=== PATIENT | female | born 1965 | race Caucasian/White ===

== ENCOUNTER 2017-06-07 06:32 | Observation (INO) ==
[2017-06-07 07:07] LABS: Basophils # 0.1 K/mcL (0.0-0.2); Basophils % 0.6 %; Eosinophils # 0.2 K/mcL (0.0-0.6); Hematocrit 51.4 % (35.3-44.9); Hemoglobin 16.6 g/dL (11.5-15.4); Immature Granulocytes % 0.6 % (0-4); Immature Platelets 3.4 % (1.1-6.1); Lymphocytes # 2.6 K/mcL (0.6-4.6); Lymphocytes % 26.2 %; Mean Corpuscular HGB Conc 32.3 g/dL (31.6-35.5); Mean Corpuscular Hemoglobin 28.5 pg (28.0-33.3); Mean Corpuscular Volume 88.2 fL (83.0-100.0); Mean Platelet Volume 9.7 fL (9.4-12.4); Monocytes # 0.5 K/mcL (0.0-1.3); Monocytes % 5.2 %; Neutrophils # 6.4 K/mcL (1.6-8.9); Platelet Count 284 K/mcL (140-400); Red Blood Count 5.83 M/mcL (3.82-4.97); Red Cell Distribution Width 13.7 % (11.5-14.5); Segmented Neutrophils % 65.4 %
[2017-06-07 07:12] LABS: INR 0.9; Prothrombin Time 9.5 Seconds (9.4-12.1)
[2017-06-07 07:14] LABS: Activated Partial Thrombo Time 30.9 Seconds (26.0-36.0)
[2017-06-07 07:20] LABS: BUN/Creatinine Ratio 16 (6-26); Blood Urea Nitrogen 15 mg/dL (7-20); Carbon Dioxide 24 mEq/L (19-29); Chloride 103 mEq/L (98-109); Potassium 3.5 mEq/L (3.5-4.5); Sodium 140 mEq/L (136-145)
[2017-06-07 07:21] LABS: Calcium 10.3 mg/dL (8.6-10.8); Glucose 130 mg/dL (70-99); Osmolality,Calculated 293 (280-300); eGFR For African Americans > 60 (> 60); eGFR For Non-African Americans > 60 (> 60)
--- NOTE | 2017-06-07 07:47 | Emergency Department Note ---
Disposition Clinical Impression: Chest pain Qualifiers: Chest pain type: unspecified Qualified Code(s): R07.9 - Chest pain, unspecified Disposition: Admitted As Inpatient Condition: Fair Chest Pain HPI - General Chief Complaint: ED Chest Pain Stated Complaint: dizziness, chest pressure Time Seen by Provider: 06/07/17 07:13 Source: patient Limitations: no limitations Vital Signs Reviewed: Yes Nursing Notes Reviewed: Yes - History of Present Illness HPI Narrative: She presents with chest tightness which began about 6:00 this morning will she was getting ready for work and it is constant and does radiate to the jaw. She does not have overt diaphoresis but felt like she was going to have sweating. The discomfort does not radiate through to the back. She denies any dyspnea. No pain or swelling of the lower extremities. She has never had this discomfort in the past. The chest discomfort is exertional. She presents via private car. She is here with her . No pain or swelling of the lower extremities, casts or splints of the lower extremities, prolonged immobilization or lower extremity injury. No history of cancer, hemoptysis, hormone therapy, blood clotting problems or recent surgery. Social history: No smoking, alcohol, drugs. Family history: Positive for father with heart disease and coronary artery bypass grafting Severity scale (1-10): 5 - Related Data Home Medications Medication Instructions Recorded Confirmed Triamterene/HCTZ 37.5/25mg 1 tab PO DAILY PRN 06/07/17 06/07/17 [Dyazide] Allergies Allergy/AdvReac Type Severity Reaction Status Date / Time No Known Allergies Allergy Verified 06/07/17 06:36 Review of Systems: Constitutional: No fever Vision: No blurred vision ENT: No rhinorrhea Respiratory: No cough Allergic: No allergies : No blood in urine GI: No blood in stool Hematologic: No bruising Dermatologic: No skin rash Musculoskeletal: No pain in the extremities Neuro: No numbness of the extremities Chest Pain PMH - Past Medical History Medical history: Reports: no medical history, non-contributory Psychiatric history: Reports: no psych history - Social History Smoking Status: Never smoker Alcohol use: Reports: none Drug use: Reports: none Physical Exam CONSTITUTIONAL: Well-appearing; well-nourished; A&O X 3, in no apparent distress HEAD: Normocephalic; atraumatic EYES: PERRL, no scleral icterus NOSE: The nose is normal in appearance without rhinorrhea NECK: No JVD or distended neck veins RESP: Normal chest excursion with respiration; breath sounds clear and equal bilaterally; no wheezes, rhonchi, or rales CARD: Regular rhythm, without murmurs, rub or gallop ABD: Non-distended; non-tender, soft, without rigidity, rebound or guarding,no pulsatile mass CHEST: No pain with palpation SKIN: Normal for age and race; warm and dry without diaphoresis ; no apparent lesions EXTREMITIES: Pulses are 2 plus and equal times 4 extremities, no peripheral edema or calf muscle pain - General Limitations: no limitations General appearance: alert, in no apparent distress Course Vital Signs Temperature 97.9 F 06/07/17 06:34 Pulse Rate 85 06/07/17 06:34 Respiratory Rate 18 06/07/17 06:34 Blood Pressure 167/114 06/07/17 06:34 O2 Sat by Pulse Oximetry 98 06/07/17 06:34 Temperature 98.1 F 06/07/17 15:50 Pulse Rate 96 06/07/17 15:50 Respiratory Rate 16 06/07/17 15:50 Blood Pressure 132/89 06/07/17 15:50 O2 Sat by Pulse Oximetry 93 06/07/17 15:50 Oxygen Delivery Oxygen Delivery Room Air Chest Pain - MDM Narrative Medical decision making narrative: This patient's chest discomfort is very concerning considering that it is exertional and radiates to the jaw and she does have a family history and because it is recent onset the labs are unable to completely exclude coronary disease as a possibility so the patient will be admitted. I did review her EKG showing normal sinus rhythm with rate of 99 without acute ischemic change. Patient does have some low voltage in the precordial leads but not in the limb leads. FL interval 143 and QRS duration is 97. I did see the patient on 2 occasions and also discussed the plan and she is comfortable with the approach. Chest x-ray negative per radiology interpretation. [id number] I did speak with the hospitalist who accepts the patient for admission. Second EKG is pending. [id number] Second EKG is done at 8:11 AM does show normal sinus rhythm with rate of 86 without acute ischemic change. The FL interval and QRS duration are both normal. 4794 - Medical Records Medical records reviewed: Yes I reviewed the patient's medical records. - Lab Data Lab results reviewed: Yes I reviewed the patient's lab results. Result diagrams: 06/07/17 06:58 06/07/17 06:58 Lab Results 06/07/17 06/07/17 06/07/17 Range/Units 06:58 06:58 06:58 WBC 9.8 (4.3-11.1) K/mcL RBC 5.83 H (3.82-4.97) M/mcL Hgb 16.6 H (11.5-15.4) g/dL Hct 51.4 H (35.3-44.9) % MCV 88.2 (83.0-100.0) fL MCH 28.5 (28.0-33.3) pg MCHC 32.3 (31.6-35.5) g/dL RDW 13.7 (11.5-14.5) % Plt Count 284 (140-400) K/mcL MPV 9.7 (9.4-12.4) fL Immature Gran % 0.6 (0-4) % Seg Neutrophils % 65.4 % Lymphocytes % 26.2 % Monocytes % 5.2 % Eosinophils % 2.0 % Basophils % 0.6 % Neutrophils # 6.4 (1.6-8.9) K/mcL Lymphocytes # 2.6 (0.6-4.6) K/mcL Monocytes # 0.5 (0.0-1.3) K/mcL Eosinophils # 0.2 (0.0-0.6) K/mcL Basophils # 0.1 (0.0-0.2) K/mcL Immature Plt Fraction 3.4 (1.1-6.1) % PT 9.5 (9.4-12.1) Seconds INR 0.9 APTT 30.9 (26.0-36.0) Seconds Sodium 140 (136-145) mEq/L Potassium 3.5 (3.5-4.5) mEq/L Chloride 103 (98-109) mEq/L Carbon Dioxide 24 (19-29) mEq/L BUN 15 (7-20) mg/dL Creatinine 0.94 (0.57-1.11) mg/dL Est GFR ( Amer) > 60 (> 60) Est GFR (Non-Af Amer) > 60 (> 60) BUN/Creatinine Ratio 16 (6-26) Glucose 130 H (70-99) mg/dL Est Mean Plasma Glucose mg/dl Hemoglobin A1c ( - 5.6) % Calculated Osmolality 293 (280-300) Calcium 10.3 (8.6-10.8) mg/dL Troponin I (0-0.03) ng/mL 06/07/17 06/07/17 Range/Units 06:58 06:58 WBC (4.3-11.1) K/mcL RBC (3.82-4.97) M/mcL Hgb (11.5-15.4) g/dL Hct (35.3-44.9) % MCV (83.0-100.0) fL MCH (28.0-33.3) pg MCHC (31.6-35.5) g/dL RDW (11.5-14.5) % Plt Count (140-400) K/mcL MPV (9.4-12.4) fL Immature Gran % (0-4) % Seg Neutrophils % % Lymphocytes % % Monocytes % % Eosinophils % % Basophils % % Neutrophils # (1.6-8.9) K/mcL Lymphocytes # (0.6-4.6) K/mcL Monocytes # (0.0-1.3) K/mcL Eosinophils # (0.0-0.6) K/mcL Basophils # (0.0-0.2) K/mcL Immature Plt Fraction (1.1-6.1) % PT (9.4-12.1) Seconds INR APTT (26.0-36.0) Seconds Sodium (136-145) mEq/L Potassium (3.5-4.5) mEq/L Chloride (98-109) mEq/L Carbon Dioxide (19-29) mEq/L BUN (7-20) mg/dL Creatinine (0.57-1.11) mg/dL Est GFR ( Amer) (> 60) Est GFR (Non-Af Amer) (> 60) BUN/Creatinine Ratio (6-26) Glucose (70-99) mg/dL Est Mean Plasma Glucose 128 mg/dl Hemoglobin A1c 6.1 H ( - 5.6) % Calculated Osmolality (280-300) Calcium (8.6-10.8) mg/dL Troponin I 0.00 (0-0.03) ng/mL - Radiology Data Radiology results reviewed: Yes I reviewed the patient's radiology results.
[2017-06-07] MEDS ORDERED: Aspirin 81 MG TAB.CHEW PO ONE (08:21)
[2017-06-07] MEDS ORDERED: Aspirin 81 MG TAB.CHEW ONE (08:26)
--- NOTE | 2017-06-07 09:24 | Internal Med History&Physical ---
<Uday Lopez - Last Filed: 06/07/17 10:36> Date of Encounter: 06/07/17 Time of Encounter: 08:30 Assessment and Plan (1) Chest pain Current visit: Yes Status: Acute 51-year-old female presented with chest pressure mainly localized over the left chest, radiating to the left arm and left jaw. Unsure of exacerbating factors as this presented at rest and relieving factors were not tried. Patient is not on aspirin and does not take nature glycerin. Chest pain appears to be atypical versus noncardiac in nature. - ROWDY score: 1 (CAD risk factors include hypertension, family history CAD, hypercholesterolemia, hypertriglyceridemia) - EKG reviewed demonstrates normal sinus rhythm with appropriate rate and axis. No previous EKG to compare. - Troponin 1 was 0.00 Based on the patient's history, physical exam and findings her chest pain appears to be atypical versus noncardiac and low suspicion for ACS. ACS cannot be ruled out at this time and will continue further cardiac workup. Other concerning risk factors including morbid obesity, elevated hemoglobin at 16.6 and hematocrit at 51 concerning for undiagnosed sleep apnea. Plan: - Troponin 3 every 6 hours - EKG every morning - Cardiac monitoring continuous - Aspirin 81 mg daily, atorvastatin, morphine, oxygen and metoprolol 25 mg by mouth daily - Treadmill stress test - ADA diet Qualifiers: Chest pain type: unspecified Qualified Code(s): R07.9 - Chest pain, unspecified (2) Hypertriglyceridemia Current visit: Yes Status: Acute Patient has a history of hypertriglyceridemia. - Recommend lifestyle modifications, improve diet and weight loss including daily exercise. - Follow up with primary care provider. (3) Hypercholesteremia Current visit: Yes Status: Acute Previous laboratory results demonstrate elevated cholesterol levels. This is concerning as the patient has a hemoglobin A1c of 5.8, morbidly obese, low exercise activity, hypertriglyceridemia, presenting with chest pressure. Her elevated cholesterol levels increase her risk for CAD. ASCVD risk score: 4.8% Current 10 year risk, 50% life time ASCVD risk. Plan: - Diet modifications, recommend increased exercise and weight control - Patient may benefit from initiation of statin. (4) Hypertension Current visit: Yes Status: Acute Patient presented with elevated blood pressures in the systolic 167 over diastolic 114, currently maintaining systolic blood pressure of 142 - Home medication includes: Triamterene-HCTZ Plan: - Monitor BP during inpatient stay and adjust as necessary. Qualifiers: Qualified Code(s): I10 - Essential (primary) hypertension (5) DVT prophylaxis Current visit: Yes Status: Acute Lovenox 40 daily every morning Internal Medicine - H&P: HPI Chief complaint: chest pain Admitted From: Emergency Dept Plans for Post Hospital Care: Home History of present illness: Ms. Silver is a 51 year old female presents to the emergency department this morning after she developed chest pain. Ms. Silver states that she was driving to work this morning and while at rest driving her car she developed chest pain starting on the right radiating to the left chest and then radiating to her left upper extremity and left jaw. She she describes the pain as a pressure chest squeezing and then localized to her left chest and continues to radiate into her left upper extremity and left jaw. 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 She denies ever having pain like this before she denies any pain radiating to her back. Currently she rates the chest pressure at a 4 out of 10. She continues to have some pain radiating into her left jaw and left upper extremity. She did not take any medications including aspirin, beta blockers, statins or nitroglycerin. She does not take any home medications other than a antihypertensive medication, which she says is a water pill. She was at rest when the discomfort started and is unsure if it is exacerbated with activity. She has not had any aspirin or nitroglycerin at the time of this encounter but says that the pain is improved. She denies any recent physical activity, strenuous activity, change in her diet or new medications. She denies any blurry vision, headaches, near syncope or syncopal episodes, palpitations, shortness of breath, pain with deep inspiration or exhalation, acid reflux or bad taste in her mouth, abdominal pains, nausea vomiting diarrhea constipation, burning with urination, swelling in her arms or legs, weakness in any of her extremities. She denies any other significant medical history. Past Med Surg Social Fam HX - Past Medical History Medical history: no medical history, non-contributory Psychiatric history: no psych history - Past Surgical History Surgical History: hysterectomy - Social History Smoking Status: Never smoker Smokeless Tobacco Status: No Alcohol use: none Drug use: none - Family History Father Hx Family Cardiac Disorders: Yes (Bypass, CAD, hypertension) Mother Living Status: Cause of : 67 Hx Family Cardiac Disorders: Yes (HTN) Hx Family Cancer: Yes (Breast CA) Hx Family GI Disorders: Yes Internal Medicine - H&P: Meds Triamterene/HCTZ 37.5/25mg [Dyazide] 1 tab PO DAILY PRN 06/07/17 [History] 3 Allergy/AdvReac Type Severity Reaction Status Date / Time No Known Allergies Allergy Verified 06/07/17 06:36 All Systems PM: A 10-system review of systems was performed and is negative for pertinent findings except as documented above in the HPI. - Constitutional Constitutional: no chills, no fever(s), no night sweats - EENT Eyes: no change in vision, no discharge, no pain, no photophobia Ears: no ear discharge, no ear pain, no tinnitus Nose, mouth and throat: no dysphagia, no nasal discharge, no neck pain, no sore throat - Cardiovascular Cardiovascular ROS IM: chest pain, no diaphoresis, no dyspnea, no dyspnea on exertion, no edema, no lightheadedness, no palpitations, no syncope - Respiratory Respiratory: no cough, no dyspnea, no wheezing, no excessive phlegm production - Gastrointestinal Gastrointestinal: no abdominal pain, no change in bowel habits, no change in stool character, no constipation, no diarrhea, no hematemesis, no hematochezia, no melena, no nausea, no vomiting - Genitourinary Genitourinary: no change in urinary stream, no dysuria, no flank pain, no hematuria - Musculoskeletal Musculoskeletal ROS IM: tingling, no numbness - Integumentary Integumentary IM: no rash, no unusual bruising - Neurological Neurological ROS: no confusion, no convulsions, no focal weakness, no numbness, no tingling, no tremor(s) - Hematologic/Lymphatic Hematologic/Lymphatic: no easy bruising - Constitutional Vitals: Temp Pulse Resp BP Pulse Ox 98.1 F 88 16 144/94 96 06/07/17 08:45 06/07/17 08:45 06/07/17 08:45 06/07/17 08:45 06/07/17 08:45 Exam: General: Morbidly obese, Patient alert, awake, oriented 3, interactive, in no acute distress HEENT: Normocephalic, atraumatic, pupils equal reactive to light, nasal cavity patent and open septum median position, oral mucosa moist, tonsillith appreciated in the right tonsil. uvula midline, neck supple trachea midline no palpable lymphadenopathy, no thyromegaly. Chest: Symmetric bilateral correlating with respiratory effort, effort nonlabored. Cardiac: Regular rate and rhythm, positive S1, S2, no bruits appreciated bilateral carotids, Radial pulses 2+ bilateral, posterior tibial and dorsal pedal pulses 2+ bilateral. Respiratory: Clear to auscultation all lung nunez Abdomen: Soft, nontender, positive bowel sounds, no palpable masses appreciated on examination Extremities: Symmetric bilateral, no erythema or edema, patient moving all 4 extremities spontaneously. Neurologic: No focal deficits appreciated on examination. Face symmetric, muscle strength symmetric bilateral upper and lower extremities. Internal Med - H&P Results - Labs CBC & Chem 7: 06/07/17 06:58 06/07/17 06:58 <Cheryl Jain - Last Filed: 06/07/17 11:56> Date of Encounter: 06/07/17 Time of Encounter: 10:35 Internal Medicine - H&P: HPI History of present illness: Ms. Silver is a 51 year old female All Systems PM: A 10-system review of systems was performed and is negative for pertinent findings except as documented above in the HPI. - Constitutional Vitals: Temp Pulse Resp BP Pulse Ox 98.1 F 79 15 114/79 94 06/07/17 11:18 06/07/17 11:18 06/07/17 11:18 06/07/17 11:18 06/07/17 11:18 Internal Med - H&P Results - Labs CBC & Chem 7: 06/07/17 06:58 06/07/17 06:58 Labs: Cardiac Enzymes 06/07/17 Range/Units 10:05 Troponin I 0.01 (0-0.03) ng/mL - Attending Attestation Patient independently seen and examined. Admitted for chest pain to rule out ACS Given family history and patient's risk factors, will obtain nuclear stress test in am (patient reports of being able to walk comfortably but states she will not be able to run or jog). Serial TNI, Nitroglycerin SL prn chest pain. Will continue tele monitoring, trend serial troponins, monitor BP. ASA, Statin, BB. pt resting in bed and reports of complete resolution of her chest pain. NPO after midnight for stress test in am Case discussed with resident physician, Dr. Uday Lopez, I agree with his documented findings, assessment, and plan.
[2017-06-07] MEDS ORDERED: Ondansetron ODT 4 MG TAB.RAPDIS SL PRN (09:48)
[2017-06-07] MEDS ORDERED: *HR* Morphine 2 MG/ML SYRINGE IVP PRN (09:48)
[2017-06-07] MEDS ORDERED: Acetaminophen 325 MG TABLET PO PRN (09:48)
[2017-06-07] MEDS ORDERED: Naloxone 0.4 MG/ML INJ IVP PRN (09:48)
--- NOTE | 2017-06-07 09:54 | Electrocardiograph Report ---
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
[2017-06-07] MEDS ORDERED: 0.9 % Sodium Chloride 1,000 ML IVC SCH (10:00)
[2017-06-07 10:35] LABS: Chol/HDL Ratio 4.6 (0-4.9)
[2017-06-07 11:10] LABS: Hemoglobin A1C 6.1 %
--- NOTE | 2017-06-07 11:55 | Electrocardiograph Report ---
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
[2017-06-07] MEDS ORDERED: Regadenoson 0.4 MG/5 ML SYRINGE IVP ONE (12:26)
[2017-06-08] MEDS ORDERED: *HR* Enoxaparin 40 MG/0.4 ML SYRINGE SQ SCH (06:00)
[2017-06-08 06:21] LABS: Basophils % 0.3 %; Eosinophils # 0.2 K/mcL (0.0-0.6); Hemoglobin 15.6 g/dL (11.5-15.4); Immature Granulocytes % 0.5 % (0-4); Lymphocytes # 2.2 K/mcL (0.6-4.6); Lymphocytes % 24.4 %; Mean Corpuscular HGB Conc 33.2 g/dL (31.6-35.5); Mean Corpuscular Volume 87.4 fL (83.0-100.0); Monocytes # 0.5 K/mcL (0.0-1.3); Monocytes % 5.3 %; Neutrophils # 6.2 K/mcL (1.6-8.9); Platelet Count 260 K/mcL (140-400); Red Blood Count 5.38 M/mcL (3.82-4.97); Red Cell Distribution Width 13.9 % (11.5-14.5); Segmented Neutrophils % 67.5 %
[2017-06-08 06:41] LABS: BUN/Creatinine Ratio 17 (6-26); Blood Urea Nitrogen 14 mg/dL (7-20); Calcium 9.3 mg/dL (8.6-10.8); Carbon Dioxide 26 mEq/L (19-29); Chloride 105 mEq/L (98-109); Chol/HDL Ratio 5.3 (0-4.9); Cholesterol 187 mg/dL (< 200); Glucose 122 mg/dL (70-99); HDL Cholesterol 35 mg/dL (40-59); LDL Cholesterol,Calculated 112 mg/dL (0-99); Osmolality,Calculated 290 (280-300); Triglycerides 199 mg/dL (< 150); eGFR For African Americans > 60 (> 60); eGFR For Non-African Americans > 60 (> 60)
[2017-06-08 06:43] LABS: Sodium 139 mEq/L (136-145)
[2017-06-08] MEDS ORDERED: Metoprolol XL (24 HR) Succ 25 MG TAB.ER.24H PO SCH (09:00)
[2017-06-08] MEDS ORDERED: Aspirin 81 MG TAB.CHEW PO SCH (09:00)
--- NOTE | 2017-06-08 09:58 | Nuclear Medicine Stress Report ---
Exercise Nuclear Stress 2 day Name: Sandee Silver Date of Study: 06/07/2017 Date: 1965 Ht: 66.0 in Medical Record#: [id number] Age: 51 Wt: 260.0 lb Gender: Female Order #: [id number] Location: [facility] Room: [facility] Supervising Provider: Lucas German CNP Reading Physician: Gregg Bowman DO, FAC, [facility] Ordering Physician: Sissy Baker CNP Primary Care Physician: Roderick Rivero MD Stress Technologist: Joyce Seymour, SPAGHETTI MACHINE OPERATOR,CPFT Rules Examiner: Eric Childs Indications: Chest Pain Impression: Exercise ECG is negative for ischemia. Frequent PVCs occasional ventricuar couplets, 3-beat NSVT noted during stress/recovery. Patient had no chest pain during stress. Gated EF > 70%. Perfusion imaging was negative for ischemia or infarct. Stress Test Summary: Stress Test Type: Treadmill Protocol: Giovani Baseline Information: Initial Heart Rate: 109 Blood Pressure: 136/96 Stress Information: Stress Time: 6 min 01 sec Test Terminated Due to (primary): Fatigue Maximum Blood Pressure: 162/52 Maximum Heart Rate: 176 Percent Maximum Heart Rate Achieved: 104 Double Product: [id number] METS Reached: 7 Symptoms: Fatigue Nuclear Summary: SPECT myocardial perfusion imaging using Tc99m Sestamibi given intravenously was performed at rest and following cardiac stress testing. The resting images were obtained following initial dose of 33.9 mCi. Following stress an additional dose of 32.1 mCi was given at peak exercise or 30 seconds post regadenoson infusion. Medication Given: Time Medication Dose Units Route Findings: Stress Note * Resting ECG demonstrated normal sinus rhythm. * No baseline arrhythmias were noted. * Exercise ECG is negative for ischemia. * Frequent PVCs occasional ventricuar couplets, 3-beat NSVT noted during stress/recovery. * The exercise capacity was fair. Patient stopped due to fatigue. * Patient had no chest pain during stress. * Normal hemodynamic responses to exercise. Study Quality * Study quality is good. Gated EF > 70% * Gated EF > 70%. Left Ventricle * The left ventricle is not dilated. LVEDV = 44 mL. NORMALS * Normal wall motion. * Normal Segmental Perfusion in rest. * Normal segmental perfusion in stress. TID * No evidence of transient ischemic dilatation. TID ratio = 0.47. Lung Uptake * There is no evidence of increase lung uptake. Updated by Gregg Bowman DO, SHIV, ANATOLIY, AMINTA on 06/08/2017 9:50:13 AM electronically signed on 06/08/2017 9:51:04 AM with status of Final
[2017-06-08 11:36] VITALS: BP 126/86
--- NOTE | 2017-06-08 14:43 | Discharge Summary ---
Date of Encounter: 06/08/17 Time of Encounter: 14:20 - Discharge Diagnosis (1) Chest pain Priority: Primary Status: Acute Comments: Patient denies chest pain since episode prior to arrival. Echocardiogram today with LVEF of 6065%, normal LV chamber size, mild LVEDD, normal RV structure and function. Patient was a 2 day stress test which was negative for ischemia. There are frequent PVCs. Gated EF greater than 70%. Troponin negative 4. Patient reports recent heartburn symptoms periodically over the last 2 weeks. She says that she is not aware if the pain got better with food since she has not eaten since prior to arrival on Wednesday. Epigastric area is slightly tender to palpation. Suggested omeprazole outpatient and follow-up with primary care. Qualifiers: Chest pain type: unspecified Qualified Code(s): R07.9 - Chest pain, unspecified (2) Hypertriglyceridemia Priority: Secondary Status: Chronic Comments: Discussed lifestyle modifications and continued medication. Follow-up with primary care. (3) Heartburn symptom Priority: Secondary Status: Acute Comments: Reports symptoms over the last 2 weeks. Plan as above. (4) Hypercholesteremia Priority: Secondary Status: Chronic Comments: Lifestyle modifications. Plan as above (5) Hypertension Priority: Secondary Status: Chronic Comments: Blood pressures well controlled in inpatient setting. Continue home medications. Qualifiers: Hypertension type: essential hypertension Qualified Code(s): I10 - Essential (primary) hypertension (6) DVT prophylaxis Priority: Secondary Status: Acute Comments: Lovenox subcutaneous. (7) Morbid obesity with BMI of 40.0-44.9, adult Priority: Secondary Status: Chronic Comments: Chronic. Lifestyle changes. - Discharge Medications Prescriptions: Atorvastatin [Lipitor] 80 mg PO HS #30 tab Omeprazole 20 mg PO DAILY #30 tablet. Home Medications: Triamterene/HCTZ 37.5/25mg [Dyazide] 1 tab PO DAILY PRN 06/07/17 [History] Atorvastatin [Lipitor] 80 mg PO HS #30 tab 06/08/17 [Rx] Omeprazole 20 mg PO DAILY #30 tablet. 06/08/17 [Rx] Allergies/Adverse Reactions: 3 Allergy/AdvReac Type Severity Reaction Status Date / Time No Known Allergies Allergy Verified 06/07/17 06:36 Procedures/tests Complete & Pending: Procedures Performed prior 72 hours Category Date Time Status NM neena perf SPECT multi [NM] Routine Exams 06/07/17 13:42 Taken ECG 12 lead ECG [ECG] AM 0600 Y 06/08/17 06:00 Ordered EV echocardiogram Routine Y 06/07/17 14:28 Completed SP exercise nuclear stress Routine Y 06/07/17 11:57 Completed Date of admission: 06/07/17 08:14 Primary care physician: Roderick Rivero MD Discharging clinician: Alexandra Gibbons Anticipated date of discharge: 06/08/17 - Patient Status Disposition: Home, Self-Care Condition: Good Functional capacity at discharge: independent ambulation Overall status at discharge: patient is back to baseline - Discharge Instructions Follow Up With: Roderick Rivero MD [Primary Care Provider] - Additional Instructions: follow up with Dr. Rivero in the next 7-10 days for a follow up visit. Return to the ER for any other problems or concerns or if your pain returns or worsens. Take your medications as directed and resume your home medications. Return to your normal activities as tolerated. Off work 06/07, , and . - Diet and Activity Activity: resume usual activities as tolerated Diet: low fat, low cholesterol Hospital course: Ms. Silver is a 51 year old female with past medical history of morbid obesity, hypertension, hyperlipidemia who presented to the emergency department with left chest pressure radiating to her left arm and left jaw. She states it is constant, rated 8/10 and lasted less than 12 hours. She reported a "getting better about 7 hour kinza continue to get better until completely resolved. Patient denies any chest pain since arrival. She also denies nausea, vomiting, diaphoresis, or shortness of breath. She reports any aggravating or alleviating factors for the chest pain. He has no prior history, however she does have risk factors of hyperlipidemia, hypertension, and morbid obesity. Patient reports to me that the pain actually began at 5:30 in the morning when she woke up, however she tells he admitted her it began while she was driving her car. She denies any by mouth intake prior to episode, however she does report recent heartburn symptoms over the last 2 weeks. She denied chest pain since prior to arrival. She denies headache, blurred vision, nausea, vomiting, diarrhea, constipation, peripheral edema. Patient's chest x-ray was negative for any acute disease process, troponins were negative 4. Stress test was negative for any ischemia or infarct with gated ejection fraction of greater than 70%. Echocardiogram showed an LVEF of 6065% with mild LV DD. She was a 2 day stress test. Physical exam is unremarkable other than patient is mildly tender to palpation epigastric area. She reports approximate two-week history of heartburn symptoms including burning in her chest, reflux of acid. I suggested the patient start omeprazole at home and return immediately to the emergency department if she has any recurrence of her symptoms. We discussed lifestyle modification in regards to her lipid panel results and her borderline A1c including diet modifications and increased exercise. Patient agrees. She will go home on a statin. Encouraged her to follow-up with her primary care provider in the next 7-10 days for follow-up visit. Labs are within normal limits, vital signs are stable. Patient is ready for discharge. - Time Spent with Patient Total time spent providing and/or coordinating discharge services: Less than 30 minutes - Constitutional Vitals: Temp Pulse Resp BP Pulse Ox 97.6 F 78 16 126/86 97 06/08/17 11:35 06/08/17 11:35 06/08/17 11:35 06/08/17 11:35 06/08/17 11:35 General appearance: Present: cooperative, A&O X 3, morbidly obese, pleasant, answers questions appropriately - Head Head exam: Present: normal inspection - Eye Eye exam: Present: normal appearance, conjuntiva pink - ENT ENT exam: Present: mucous membranes moist, normal exam, normal external ear exam - Neck Neck exam general surgery: Present: normal inspection. Absent: lymphadenopathy , tenderness - Respiratory Respiratory exam: Present: CTAB. Absent: decreased breath sounds, rales, respiratory distress, rhonchi, stridor, wheezes - Cardiovascular Cardiovascular exam: Present: RRR, +S1, +S2. Absent: clicks, diastolic murmur, gallop, systolic murmur - GI/Abdominal GI/Abdominal exam: Present: distended, normal bowel sounds, soft. Absent: hepatomegaly, tenderness - Extremities Exam Extremities exam: Present: normal capillary refill, normal inspection, warm, radial pulses palpable and symmetrical. Absent: pedal edema, tenderness - Neurological Exam Neurological exam: Present: alert, oriented X3, no focal deficits. Absent: facial droop, speech deficit
== END 2017-06-08 15:20 | disposition home or self-care (01) ==
LOC: EMEROO 06:32 → 3BNU 06:32
PROVIDERS: ADMIT Internal Medicine; ATTEND Nurse Practitioner Family